=== PATIENT | male | born 1960 | race Caucasian/White ===

== ENCOUNTER 2017-04-04 21:25 | Emergency (ER) | payer OTHER ==
[~2017-04-04] VITALS: Ht 170.2 cm; Wt 99.8 kg
[2017-04-04 21:31] VITALS: BP_SYST 158
[2017-04-04] MEDS ORDERED: NACL 0.9% 1,000 ML IV ONE (21:47)
[2017-04-04] MEDS ORDERED: MORPHINE 4 MG/ML INJ. SYRINGE IVP ONE (22:00)
[2017-04-04] MEDS ORDERED: ONDANSETRON HCL 4 MG/2 ML VIAL IVP ONE (22:00)
[2017-04-04] MEDS ORDERED: IOHEXOL 100 ML IV ONE (22:15)
[2017-04-04 22:20] LABS: BASOPHILS # (AUTO) 0.1 K/uL (0.0-0.2); EOSINOPHILS % (AUTO) 0.1 % (0.0-4.0); HEMATOCRIT 51.3 % (36-54); HEMOGLOBIN 16.8 g/dL (14.0-18.0); LYMPHOCYTES % (AUTO) 7.6 % (20.5-51.5); MEAN CORPUSCULAR HEMOGLOBIN 31 pg (27-31); MEAN CORPUSCULAR HGB CONC 33 % (32-36); MEAN CORPUSCULAR VOLUME 94 fL (79.0-98.0); MONOCYTES # (AUTO) 0.5 K/uL (0.0-1.0); MONOCYTES % (AUTO) 4.2 % (1.7-9.3); NEUTROPHILS # (AUTO) 11.1 K/uL (1.8-7.7); NEUTROPHILS % (AUTO) 87.1 % (40.0-70.0); PLATELET COUNT (AUTO) 311 K/uL (130-430); RED BLOOD CELL COUNT(AUTO) 5.48 MIL/uL (4.2-6.2); RED CELL DISTRIBUTION WIDTH 12.6 % (9.0-15.0); WHITE BLOOD COUNT (AUTO) 12.7 K/uL (4.8-10.8)
[2017-04-04 22:23] LABS: BILIRUBIN,URINE NEGATIVE (NEGATIVE); CLARITY/URINE CLEAR (CLEAR); COLOR,URINE YELLOW (YELLOW); GLUCOSE,URINE TRACE (NEGATIVE); KETONES,URINE 1+ (NEGATIVE); LEUKOCYTE ESTERASE ,URINE NEGATIVE (NEGATIVE); NITRITE, URINE NEGATIVE (NEGATIVE); PROTEIN URINE TRACE (NEGATIVE); UROBILINOGEN,URINE 0.2 (0.2-1.0)
[2017-04-04 22:25] LABS: BLOOD, URINE TRACE (NEGATIVE)
[2017-04-04 22:30] LABS: CALCIUM 9.3 mg/dL (8.4-11.0); CREATININE 1.22 mg/dL (0.55-1.30)
[2017-04-04 22:34] LABS: ALBUMIN 4.2 g/dL (3.4-4.8)
[2017-04-04 22:40] LABS: INR 1.1 (0.80-1.20); PROTHROMBIN TIME 11.4 SECS (9.5-12.5)
[2017-04-04 22:42] LABS: BACTERIA,URINE FEW /HPF (None Seen); MUCUS,URINE 1+ /LPF (None Seen); RBC,URINE 0-3 /HPF (0-3); WBC,URINE 0-3 /HPF (0-3)
[2017-04-04 23:52] VITALS: BP_SYST 148
== END 2017-04-04 23:52 | disposition home or self-care (01) ==
LOC: SED 21:25
DX: K40.20 Bilateral inguinal hernia, without obstruction or gangrene, not specified as recurrent (principal); K52.9 Noninfective gastroenteritis and colitis, unspecified; E86.0 Dehydration; K21.9 Gastro-esophageal reflux disease without esophagitis
CPT/HCPCS: 36415; 74177; 80053; 81000; 82150; 83690; 85025; 85610; 85730; 96361; 96374; 96375; 99285; J2270; J2405; J7030; Q9967

== ENCOUNTER 2021-12-08 08:17 | Emergency (ER) | payer MEDICAID, SELFPAY ==
[~2021-12-08] VITALS: Ht 177.8 cm; Wt 97.5 kg
[2021-12-08 08:30] VITALS: BP_SYST 145
--- NOTE | 2021-12-08 08:30 | NUR ---
PT TRIAGED AND PLACED IN WAITING ROOM FOR AVAILABLE BED IN MAIN ED
--- NOTE | 2021-12-08 10:20 | NUR ---
Pt. came in with concerns of elevated blood sugar and c/o feeling excessive thirst, increase need to void and dry mouth, pt. takes metformin at home and took his regular dose and blood sugar this am was still over 300
--- NOTE | 2021-12-08 10:28 | NUR ---
accu check done in triage [id number]
--- NOTE | 2021-12-08 10:39 | NUR ---
ER at bedside examining patient.
[2021-12-08] MEDS ORDERED: INSULIN REGULAR, HUMAN 10 UNITS/0.1 ML INJ IVP ONE (10:45)
[2021-12-08] MEDS ORDERED: NACL 0.9% 1,000 ML IV ONE (10:45)
[2021-12-08 11:24] LABS: BASOPHILS % (AUTO) 0.8 % (0.0-2.0); EOSINOPHILS # (AUTO) 0.2 K/uL (0.0-0.4); EOSINOPHILS % (AUTO) 4.3 % (0.0-4.0); HEMATOCRIT 49.8 % (36-54); HEMOGLOBIN 17.1 g/dL (14.0-18.0); LYMPHOCYTES # (AUTO) 1.4 K/uL (1.0-5.5); LYMPHOCYTES % (AUTO) 25.6 % (20.5-51.5); MEAN CORPUSCULAR HEMOGLOBIN 32 pg (27-31); MEAN CORPUSCULAR HGB CONC 34 % (32-36); MEAN CORPUSCULAR VOLUME 93 fL (79.0-98.0); MONOCYTES # (AUTO) 0.4 K/uL (0.0-1.0); MONOCYTES % (AUTO) 7.2 % (1.7-9.3); NEUTROPHILS # (AUTO) 3.4 K/uL (1.8-7.7); NEUTROPHILS % (AUTO) 62.1 % (40.0-70.0); PLATELET COUNT (AUTO) 238 K/uL (130-430); RED BLOOD CELL COUNT(AUTO) 5.36 MIL/uL (4.2-6.2); RED CELL DISTRIBUTION WIDTH 12.6 % (9.0-15.0); WHITE BLOOD COUNT (AUTO) 5.5 K/uL (4.8-10.8)
[2021-12-08 11:42] LABS: CREATININE 0.87 mg/dL (0.55-1.30); POTASSIUM 4.2 mmol/L (3.5-5.1)
[2021-12-08 13:02] VITALS: BP_SYST 145
--- NOTE | 2021-12-08 13:04 | NUR ---
Patient given written and verbal discharge instructions and verbalizes understanding. ER MD discussed with patient the results and treatment provided. Patient in stable condition. ID arm band removed. No Rx given. Patient educated on pain management and to follow up with PMD. Pain Scale 0/10. Opportunity for questions provided and answered. Medication side effect fact sheet provided.
[2021-12-08] MEDS ORDERED: IBUPROFEN 600 MG TABLET ONE (13:45)
== END 2021-12-08 13:04 | disposition home or self-care (01) ==
LOC: SED 08:17
DX: E11.65 Type 2 diabetes mellitus with hyperglycemia (principal); I10 Essential (primary) hypertension
CPT/HCPCS: 36415; 80048; 82962; 85025; 96361; 96374; 99284; J1815

== ENCOUNTER 2024-05-18 21:11 | Emergency (ER) | payer MEDICAID ==
[~2024-05-18] VITALS: Ht 170.2 cm; Wt 90.7 kg
[2024-05-18 21:29] VITALS: BP_SYST 168; PULSE 70; RESP 18; TEMP 98.1; O2SAT 96
[2024-05-18] MEDS ORDERED: AUG875 PO (22:27)
[2024-05-18] MEDS ORDERED: HYDR-3917 PO (22:27)
[2024-05-18] MEDS ORDERED: IBUP-1970 PO (22:27)
[2024-05-18] MEDS: HYDROcodone/ACETAMIN 5-325 MG TAB (NORCO/ VICODIN) PO ONE (22:36)
[2024-05-18] MEDS: KETOROLAC TROMETHAMINE 60 MG/2 ML VIAL IM ONE (22:36)
[2024-05-18 23:32] VITALS: BP_SYST 142; PULSE 98; RESP 18; TEMP 97.8; O2SAT 95
[2024-05-18] MEDS: cefTRIAXone 1 GM in LIDOCAINE 1%, 20 ML MDV 2.1 ML IM ONE (23:38)
== END 2024-05-18 23:39 | disposition home or self-care (01) ==
LOC: SED 21:11
DX: K04.7 Periapical abscess without sinus (principal); K21.9 Gastro-esophageal reflux disease without esophagitis; E11.9 Type 2 diabetes mellitus without complications
CPT/HCPCS: 99284; 96374; 82948; 96372; J0696; J1885; J2001